=== PATIENT | male | born 1960 | race Caucasian/White ===

== ENCOUNTER 2018-08-19 20:43 | Emergency (ER) | payer BC ==
[2018-08-20] MEDS: HYDROCODONE/APAP (10/325) TAB PO (01:35)
[2018-08-20] MEDS: predniSONE 20 MG TAB PO (01:35)
== END 2018-08-20 01:40 | disposition home or self-care (01) ==
LOC: FTE 20:43
DX: M10.9 Gout, unspecified (principal); Z79.82 Long term (current) use of aspirin
CPT/HCPCS: 99283